=== PATIENT | male | born 1940 | race Caucasian/White ===

== ENCOUNTER 2017-11-10 07:55 | Emergency (ER) | payer MEDICARE, BC ==
[2017-11-10 08:09] VITALS: BP 150/67
--- NOTE | 2017-11-10 08:56 | UC ---
General HPI - HPI Summary HPI Summary: Pt presents with discomfort in left mid thigh, mid back and upper shoulder. Pt is a 77 yo male with h/o neck and back spasms. Pt states apprx 3 days ago was walking up stairs when stepped irregular. pt with discomfort in midback and upper left leg at this time. Pt states took his 's percocet and flexeril. STates helped with discomfort short term, but still with spasm pain. Pt states he has applied heat which equally helps short term. Pt states concenred because pain still rpesent and wanted ot be checked. Pt has been walking with a slight limp due to back pain. No assist device. No cp, sob, and pain. No changes to bowel/bladder. No extreminty weakness. No direct trauma Pt's medications reviewed this visit - History of Current Complaint Chief Complaint: UCGeneralIllness Stated Complaint: LT LEG/FOOT PAIN Time Seen by Provider: 11/10/17 08:28 Hx Obtained From: Patient Pain Intensity: 3 - Allergy/Home Medications Allergies/Adverse Reactions: Allergies Allergy/AdvReac Type Severity Reaction Status Date / Time Penicillins Allergy Severe "I was Verified 11/10/17 08:11 paralyzed for 8 weeks" valsartan Allergy Severe edema of Verified 11/10/17 08:12 uvula morphine AdvReac Unknown Unknown Verified 11/10/17 08:12 Reaction Details Home Medications: Home Medications Losartan TAB* [Cozaar TAB*] 25 mg PO DAILY 11/10/17 [History Confirmed 11/10/17] Sitagliptin Phosphate [Januvia] 25 mg PO DAILY 11/10/17 [History Confirmed 11/10] PMH/Surg Hx/FS Hx/Imm Hx Previously Healthy: No - gout Endocrine History: Diabetes Cardiovascular History: Hypertension - Surgical History Surgical History: Yes Surgery Procedure, Year, and Place: cataract surgery. RIGHT KNEE SURGERY - Family History Known Family History: Positive: Hypertension - Social History Occupation: Retired Lives: With Family Alcohol Use: Rare Substance Use Type: None Smoking Status (MU): Former Smoker When Did the Patient Quit Smoking/Using Tobacco: 1967 - Immunization History Most Recent Influenza Vaccination: [id number] Review of Systems Constitutional: Negative Skin: Negative Musculoskeletal: Other: - back pain All Other Systems Reviewed And Are Negative: Yes Physical Exam - Summary Physical Exam Summary: Vital Signs Reviewed: Yes A+Ox3, no distress Eyes: Conjunctiva Clear, NEHEMIAS. EOM intact and full ENT: Hearing grossly normal TM x 2 clear, mmoist, uvula midline, no exudate, no erythema Neck: Positive: Supple Respiratory: Positive: No respiratory distress, No accessory muscle use + CTA throughout no w/r Cardiovascular: RRR nl s1, s2 no m/r CBT <2 sec abd soft + BS nt/nd no guarding, no distension Musculoskeletal Exam: No spinous process pain c/t/l/s Full AROM c spine + TTP left trapezius pain increases with direct palp, abduction left shoulder + flex/ ext elbows, + SLE b/l LE Pt with discomfort posterior/distal thigh. Pain increases with extension of left knee feels "tight" + flex/ext ankle without discomfort Neurological: Positive: Alert, + sensation throughout Psychological: Positive: Normal Response To Family Skin: Positive: no rash, no ecchymosis Triage Information Reviewed: Yes Vital Signs: Initial Vital Signs Temp 98.3 F 11/10/17 08:02 Pulse 71 11/10/17 08:02 Resp 16 11/10/17 08:02 BP 150/67 11/10/17 08:02 Pulse Ox 98 11/10/17 08:02 Course/Dx - Course Course Of Treatment: Pt with pain and discomfort left trapezius and left distal posterior thigh after slight stumble 3 days ago. Pt states pain improved with heat analgesia. PT concerned "tore a muscle" Pt with palpable muscle tight distal hamstring and left trapezius. Pt csm intact. recommend heat/stretch. consulted [facility] - will give new Rx tramadol. recommended crutches - pt has cane and will use. valeriano wrap for support and comfort. pcp f/u. return precautions. pt comfortable and in agreement with plan. Pt's BP elevated - h/ o htn - Differential Dx - Multi-Symptom Provider Diagnoses: muscle strain left trapezius, left hamstring Discharge - Sign-Out/Discharge Documenting (check all that apply): Patient Departure - Discharge Plan Condition: Stable Disposition: HOME Prescriptions: traMADol TAB* [Ultram*] 50 mg PO Q8H PRN #15 tab MDD 3 PRN Reason: Pain Patient Education Materials: Cervical Strain (ED), Muscle Strain (ED) Referrals: Presley Kwon DO [Primary Care Provider] - Additional Instructions: - okay to take tylenol every 6-8 hours for discomfort - okay to take Tramadol as prescribed- this medication can cause sedation. Do not drive, operate equipment, drink alcohol, or take illicit any medications while taking it. - Apply moist heat to the areas that are sore. Neck as well as leg. Once they are warm, slow gentle stretching exercises are important. - It is recommended that she use a cane with walking for pounds. Recommended to to use neck support an Valeriano wrap to help support her sore muscles. - Contact your primary care doctor today to schedule follow-up appointment. If you develop increased pain, weakness, or any other questions concerns is recommended to go to emergency department for further evaluation and treatment. - Billing Disposition and Condition Condition: STABLE Disposition: Home
== END 2017-11-10 08:59 | disposition home or self-care (01) ==
LOC: UCCORT 07:55
DX: S29.012A Strain of muscle and tendon of back wall of thorax, initial encounter (principal); S76.812A Strain of other specified muscles, fascia and tendons at thigh level, left thigh, initial encounter; Z88.0 Allergy status to penicillin; Z88.5 Allergy status to narcotic agent; Z88.8 Allergy status to other drugs, medicaments and biological substances; E11.9 Type 2 diabetes mellitus without complications; I10 Essential (primary) hypertension; Z87.891 Personal history of nicotine dependence; X58.XXXA Exposure to other specified factors, initial encounter; Y93.01 Activity, walking, marching and hiking; Y92.9 Unspecified place or not applicable
CPT/HCPCS: 99212; G0463